=== PATIENT | male | born 1990 | race Caucasian/White ===

== ENCOUNTER 2021-11-19 10:55 | Emergency (ER) | payer OTHER ==
[~2021-11-19 10:55] MED LIST: BACTRIM DS TAB1 EACH PO; IBUPROFEN800 MG PO; KEFLEX500 MG PO
[2021-11-19 12:36] LABS: INFLUENZA A NAA NEGATIVE (NEGATIVE)
[2021-11-19 12:39] LABS: CORONAVIRUS 2019 SARS-COV-2 POSITIVE (NEGATIVE)
== END 2021-11-19 13:27 | disposition home or self-care (01) ==
LOC: FER 10:55
PROVIDERS: Internal Medicine
DX: U07.1 COVID-19 (principal); F17.210 Nicotine dependence, cigarettes, uncomplicated
CPT/HCPCS: 99284; U0002